=== PATIENT | female | born 1985 | race Caucasian/White ===

== ENCOUNTER 2017-03-13 23:48 | Emergency (ER) | payer MEDICAID ==
[~2017-03-13] VITALS: Ht 170.2 cm; Wt 63.0 kg
[2017-03-14] MEDS ORDERED: SODIUM CHLORIDE 0.9% 1,000 ML IV ONE (02:36)
[2017-03-14 02:55] LABS: BASOPHILS % 0.9 % (0.0-2.0); HEMATOCRIT. 34.7 % (36.0-48.0); LYMPHOCYTES % 34.2 % (20.0-50.0); MEAN CORPUSCULAR HEMOGLOBIN 31.8 pg (28.0-32.0); MEAN CORPUSCULAR VOLUME 92.1 fL (81.0-99.0); MEAN PLATELET VOLUME 8.4 fl (7.4-10.4); MONOCYTES % 6.3 % (2.0-8.0); NEUTROPHILS % 56.6 % (40.0-76.0); PLATELET 134 x1000/uL (130-400); RED BLOOD CELL COUNT 3.77 mill/uL (4.2-5.4); RED CELL DISTRIBUTION WIDTH 13.7 % (11.6-14.6)
[2017-03-14 03:03] LABS: CHLORIDE 106 mEq/L (98-107)
[2017-03-14 03:04] LABS: INR 1.1; PROTHROMBIN TIME 11.3 sec (9.4-11.6)
[2017-03-14 03:11] LABS: CARBON DIOXIDE 26 mEq/L (21-32)
[2017-03-14 04:30] VITALS: BP 98/53
== END 2017-03-14 05:30 | disposition home or self-care (01) ==
LOC: ER 23:48
DX: R53.1 Weakness (principal); K74.60 Unspecified cirrhosis of liver
CPT/HCPCS: 36415; 80053; 85025; 85610; 96360; 99284; J7030; Z7610

== ENCOUNTER 2019-05-05 00:30 | Emergency (ER) | payer MEDICAID ==
[~2019-05-05] VITALS: Ht 165.1 cm; Wt 68.0 kg
[2019-05-05] MEDS ORDERED: ONDANSETRON HCL 4MG/2ML INJ IV STA (01:44)
[2019-05-05] MEDS ORDERED: KETOROLAC 30MG/ML VIAL IV STA (01:44)
[2019-05-05] MEDS ORDERED: SODIUM CHLORIDE 0.9% 1,000 ML IV ONE (01:44)
[2019-05-05 02:27] LABS: BASOPHILS % 0.8 % (0.0-2.0); EOSINOPHILS % 0.4 % (0.0-5.0); HEMATOCRIT. 35.4 % (36.0-48.0); HEMOGLOBIN. 12.1 g/dL (12.0-16.0); LYMPHOCYTES % 15.4 % (20.0-50.0); MEAN CORPUSCULAR HEMOGLOBIN 32.8 pg (28.0-32.0); MEAN CORPUSCULAR VOLUME 96.1 fL (81.0-99.0); MEAN PLATELET VOLUME 9.1 fl (7.4-10.4); MONOCYTES % 5.4 % (2.0-8.0); PLATELET 140 x1000/uL (130-400); RED BLOOD CELL COUNT 3.68 mill/uL (4.2-5.4)
[2019-05-05 02:37] LABS: CHLORIDE 102 mEq/L (98-107)
[2019-05-05 02:43] LABS: ETHANOL BLOOD < 10 mg/dL
[2019-05-05 02:48] LABS: *AMPHETAMINES SCREEN URINE NEGATIVE (NEGATIVE)
[2019-05-05 02:49] LABS: *BARBITURATES SCREEN URINE NEGATIVE (NEGATIVE); *BENZODIAZEPINES SCREEN URINE NEGATIVE (NEGATIVE); *COCAINE SCREEN URINE NEGATIVE (NEGATIVE); METHADONE URINE SCREEN NEGATIVE (NEGATIVE); OPIATES URINE SCREEN NEGATIVE (NEGATIVE); PHENCYCLIDINE URINE SCREEN NEGATIVE (NEGATIVE)
[2019-05-05 02:50] LABS: CANNABINOID URINE SCREEN NEGATIVE (NEGATIVE)
[2019-05-05] MEDS ORDERED: CHLORDIAZEPOXIDE 25MG CAPSULE PO ONE (03:15)
[2019-05-05] MEDS ORDERED: ARIPIPRAZOLE 10MG TABLET PO ONE (08:30)
[2019-05-05] MEDS ORDERED: ARIPIPRAZOLE 5MG TABLET PO ONE (09:45)
[2019-05-05] MEDS ORDERED: LORAZEPAM 2MG/ML CPJ IV ONE (13:30)
[2019-05-05 13:31] VITALS: BP 114/78
== END 2019-05-05 13:38 | disposition home or self-care (01) ==
LOC: ER 01:05
DX: F10.239 Alcohol dependence with withdrawal, unspecified (principal); Y90.0 Blood alcohol level of less than 20 mg/100 ml; R07.89 Other chest pain; R44.3 Hallucinations, unspecified; Z88.5 Allergy status to narcotic agent
CPT/HCPCS: 36415; 70450; 71045; 80053; 80305; 80307; 80320; 80329; 83690; 84484; 85025; 93005; 96374; 96375; 99284; J1885; J2405; J7030; Z7610; G0480

== ENCOUNTER 2020-01-24 15:51 | Emergency (ER) | payer MEDICAID ==
[~2020-01-24] VITALS: Ht 170.2 cm; Wt 68.0 kg
[2020-01-24 16:34] VITALS: BP 130/92
[2020-01-24] MEDS ORDERED: LORAZEPAM 1MG TABLET PO ONE (17:45)
== END 2020-01-24 17:43 | disposition left against medical advice (07) ==
LOC: ER 16:00
DX: F41.0 Panic disorder [episodic paroxysmal anxiety] (principal); Z88.6 Allergy status to analgesic agent; Z98.890 Other specified postprocedural states
CPT/HCPCS: 81025; 99283

== ENCOUNTER 2020-09-18 20:05 | Emergency (ER) | payer MEDICAID ==
[~2020-09-18] VITALS: Ht 165.1 cm; Wt 69.0 kg
[2020-09-18 21:54] LABS: BASOPHILS % 0.6 % (0.0-2.0); EOSINOPHILS % 1.3 % (0.0-5.0); HEMATOCRIT. 37.1 % (36.0-48.0); LYMPHOCYTES % 25.3 % (20.0-50.0); MEAN CORPUSCULAR VOLUME 91.5 fL (81.0-99.0); MEAN PLATELET VOLUME 8.8 fl (7.4-10.4); MONOCYTES % 6.3 % (2.0-8.0); NEUTROPHILS % 66.5 % (40.0-76.0); PLATELET 99 x1000/uL (130-400); RED BLOOD CELL COUNT 4.05 mill/uL (4.2-5.4); RED CELL DISTRIBUTION WIDTH 13.6 % (11.6-14.6)
[2020-09-18 21:59] LABS: *BARBITURATES SCREEN URINE NEGATIVE (NEGATIVE); *BENZODIAZEPINES SCREEN URINE NEGATIVE (NEGATIVE); *COCAINE SCREEN URINE NEGATIVE (NEGATIVE); METHADONE URINE SCREEN NEGATIVE (NEGATIVE); OPIATES URINE SCREEN NEGATIVE (NEGATIVE); PHENCYCLIDINE URINE SCREEN NEGATIVE (NEGATIVE)
[2020-09-18 22:02] LABS: CHLORIDE 104 mEq/L (98-107)
[2020-09-18 22:04] LABS: *AMPHETAMINES SCREEN URINE PRESUMTIVE POSITIVE (NEGATIVE); CANNABINOID URINE SCREEN PRESUMTIVE POSITIVE (NEGATIVE)
[2020-09-18 22:05] LABS: ETHANOL BLOOD < 10 mg/dL
[2020-09-19] MEDS ORDERED: LORAZEPAM 1MG TABLET PO ONE (06:00)
[2020-09-19] MEDS ORDERED: NICOTINE 7MG PATCH TD ONE (13:30)
[2020-09-19] MEDS: RISPERIDONE 1MG TABLET PO SCH (16:34)
[2020-09-20] MEDS: RISPERIDONE 1MG TABLET PO SCH (09:13)
[2020-09-20] MEDS ORDERED: RISP1 MT (13:49)
[2020-09-20 14:14] VITALS: BP 116/68
== END 2020-09-20 14:15 | disposition home or self-care (01) ==
LOC: ER 20:05
DX: F20.9 Schizophrenia, unspecified (principal); R26.9 Unspecified abnormalities of gait and mobility; R45.851 Suicidal ideations; F15.10 Other stimulant abuse, uncomplicated; Z20.822 Contact with and (suspected) exposure to COVID-19; Z59.0 Homelessness; Z88.5 Allergy status to narcotic agent
CPT/HCPCS: 36415; 80048; 80076; 80305; 80307; 80320; 80329; 85025; 99285; G0480

== ENCOUNTER 2020-09-20 17:34 | Emergency (ER) | payer MEDICAID ==
[~2020-09-20] VITALS: Ht 165.1 cm; Wt 69.0 kg
[~2020-09-20 17:34] MED LIST: RISP1 MT
== END 2020-09-20 17:50 | disposition left against medical advice (07) ==
LOC: ER 17:34
DX: F15.129 Other stimulant abuse with intoxication, unspecified (principal); F20.9 Schizophrenia, unspecified; F32.9 Major depressive disorder, single episode, unspecified; F41.9 Anxiety disorder, unspecified; F12.10 Cannabis abuse, uncomplicated; F11.10 Opioid abuse, uncomplicated; K76.9 Liver disease, unspecified; Z88.5 Allergy status to narcotic agent
CPT/HCPCS: 99283